=== PATIENT | male | born 1945 | race Caucasian/White ===

== ENCOUNTER 2022-05-13 13:59 | Inpatient (IN) | payer BC ==
[~2022-05-13] VITALS: Ht 172.7 cm; Wt 95.8 kg
[2022-05-13] VITALS (20 sets, daily range): BP systolic 109–135; BP diastolic 47–64
[2022-05-13] MEDS ORDERED: LANTUS SOL100 UNIT/M SC (14:25)
[2022-05-13] MEDS ORDERED: BENICAR HCT1 TA2 PO (14:26)
[2022-05-13] MEDS ORDERED: ROSUVASTATIN CA20 MG PO (14:26)
[2022-05-13] MEDS ORDERED: ELAVIL25 M1 PO (14:26)
[2022-05-13] MEDS ORDERED: GLICLAZIDE PO (14:29)
[2022-05-13] MEDS ORDERED: METFORMIN HCL500 M1 PO (14:29)
[2022-05-13] MEDS ORDERED: ZYLOPRIM300 MG PO (14:30)
[2022-05-13] MEDS ORDERED: TAMSULOSIN0.4 MG PO (14:30)
[2022-05-13] MEDS ORDERED: SPIRONOLACTONE25 MG PO (14:30)
[2022-05-13] MEDS ORDERED: METOPROL TAR25 MG PO (14:31)
[2022-05-13] MEDS ORDERED: OMEPRAZOLE DR20 MG PO (14:31)
[2022-05-13 14:51] LABS: HEMATOCRIT 32.4 % (39.0-50.0); HEMOGLOBIN 10.4 g/dl (14.0-18.0); IMMATURE GRANULOCYTES 0.1 % (0.0-5.0); MEAN CELL VOLUME 84.2 fL CALC (80.0-100.0); MEAN CORPUSCULAR HGB CONC 32.1 g/dL CAL (32.0-36.0); NEUT# 8.4 thou/uL (1.82-7.42); RED BLOOD COUNT 3.85 mill/uL (4.70-6.10)
[2022-05-13 14:55] LABS: URINE BLOOD DIPSTICK LARGE (NEGATIVE); URINE GLUCOSE - DIPSTICK NEGATIVE (NEGATIVE); URINE KETONE NEGATIVE (NEGATIVE); URINE LEUK ESTERASE TRACE (NEGATIVE); URINE PH 6.5 (4.5-8.0); URINE PROTEIN - DIPSTICK 100 mg/dL (NEG-TRACE); URINE UROBILINOGEN - DIPSTICK 0.2 E.U./dL (0.2)
[2022-05-13 14:57] LABS: URINE BILIRUBIN - DIPSTICK SMALL (NEGATIVE); URINE COLOR RED; URINE NITRITE - DIPSTICK POSITIVE (Negative)
[2022-05-13 14:58] LABS: URINE BACTERIA FEW hpf; URINE EPITHELIAL CELLS FEW EPI/hpf (0-FEW); URINE RBC TNTC RBC/hpf (0-5)
[2022-05-13 15:11] LABS: ALBUMIN 3.6 g/dL (3.2-5.0); BILIRUBIN, TOTAL 0.7 mg/dL (0.0-1.4); CREATININE 1.4 mg/dL (0.7-1.3); TOTAL PROTEIN 5.8 g/dL (6.3-8.2)
[2022-05-13 15:12] LABS: POTASSIUM 5.4 mmol/l (3.5-5.1)
[2022-05-14] VITALS (19 sets, daily range): BP systolic 87–126; BP diastolic 23–55
[2022-05-14 06:02] LABS: HEMATOCRIT 31.2 % (39.0-50.0); HEMOGLOBIN 10.1 g/dl (14.0-18.0); IMMATURE GRANULOCYTES 0.3 % (0.0-5.0); MEAN CORPUSCULAR HGB 27.5 pG CALC (26.0-32.0); MEAN CORPUSCULAR HGB CONC 32.4 g/dL CAL (32.0-36.0); NEUT# 5.57 thou/uL (1.82-7.42); RED BLOOD COUNT 3.67 mill/uL (4.70-6.10); RED CELL DISTRI WIDTH 16.2 % (11.5-15.5)
[2022-05-14 06:13] LABS: ALBUMIN 3.1 g/dL (3.2-5.0); BILIRUBIN, TOTAL 0.5 mg/dL (0.0-1.4); CREATININE 1.4 mg/dL (0.7-1.3); POTASSIUM 4.5 mmol/l (3.5-5.1); TOTAL PROTEIN 5.8 g/dL (6.3-8.2)
[2022-05-14] MEDS ORDERED: ASPIRIN/ENTERIC81 MG PO (11:35)
[2022-05-14 17:11] LABS: HEMATOCRIT 35.1 % (39.0-50.0); HEMOGLOBIN 11.2 g/dl (14.0-18.0); IMMATURE GRANULOCYTES 0.6 % (0.0-5.0); MEAN CELL VOLUME 85.4 fL CALC (80.0-100.0); MEAN CORPUSCULAR HGB 27.3 pG CALC (26.0-32.0); MEAN CORPUSCULAR HGB CONC 31.9 g/dL CAL (32.0-36.0); NEUT# 3.96 thou/uL (1.82-7.42); RED BLOOD COUNT 4.11 mill/uL (4.70-6.10); RED CELL DISTRI WIDTH 16.4 % (11.5-15.5)
[2022-05-14 17:36] LABS: ALBUMIN 3.6 g/dL (3.2-5.0); BILIRUBIN, TOTAL 0.3 mg/dL (0.0-1.4); BUN 21 mg/dL (8-23); BUN/CREATININE RATIO 16 (12-20 (CALC)); CHLORIDE 110 mmol/l (95-108); CREATININE 1.3 mg/dL (0.7-1.3); GFR FOR AFR.AMER. > 60 ML/MIN (>=60 (CALC)); GFR OTHER RACES 54 ML/MIN (>=60 (CALC)); POTASSIUM 4.8 mmol/l (3.5-5.1); SGOT/AST 57 u/l (19-48); SODIUM 138 mmol/l (137-146); TOTAL PROTEIN 6.4 g/dL (6.3-8.2)
[2022-05-14 17:37] LABS: ALKALINE PHOSPHATASE 101 u/l (38-126); ANION GAP 18 (6-22 (CALC)); CARBON DIOXIDE 15 mmol/l (22-30)
[2022-05-15] VITALS (38 sets, daily range): BP systolic 41–160; BP diastolic 24–93
[2022-05-15 04:00] LABS: IMMATURE GRANULOCYTES 0.2 % (0.0-5.0); MEAN CELL VOLUME 84.8 fL CALC (80.0-100.0); MEAN CORPUSCULAR HGB 27.2 pG CALC (26.0-32.0); RED BLOOD COUNT 3.35 mill/uL (4.70-6.10); RED CELL DISTRI WIDTH 16.4 % (11.5-15.5)
[2022-05-15 04:03] LABS: HEMATOCRIT 28.4 % (39.0-50.0); HEMOGLOBIN 9.1 g/dl (14.0-18.0)
[2022-05-15 04:20] LABS: ALKALINE PHOSPHATASE 59 u/l (38-126); BILIRUBIN, TOTAL 0.3 mg/dL (0.0-1.4); BUN 23 mg/dL (8-23); BUN/CREATININE RATIO 18 (12-20 (CALC)); CHLORIDE 114 mmol/l (95-108); CREATININE 1.3 mg/dL (0.7-1.3); GFR FOR AFR.AMER. > 60 ML/MIN (>=60 (CALC)); GFR OTHER RACES 54 ML/MIN (>=60 (CALC)); MAGNESIUM 1.3 mg/dL (1.6-2.3); POTASSIUM 5.1 mmol/l (3.5-5.1); SGOT/AST 57 u/l (19-48); SODIUM 140 mmol/l (137-146); TOTAL PROTEIN 5.4 g/dL (6.3-8.2)
[2022-05-15 04:21] LABS: ALBUMIN 2.8 g/dL (3.2-5.0); ANION GAP 11 (6-22 (CALC)); CARBON DIOXIDE 20 mmol/l (22-30)
[2022-05-16] VITALS (12 sets, daily range): BP systolic 111–150; BP diastolic 27–60
[2022-05-16 06:02] LABS: HEMATOCRIT 27.5 % (39.0-50.0); MEAN CELL VOLUME 83.6 fL CALC (80.0-100.0); MEAN CORPUSCULAR HGB 27.4 pG CALC (26.0-32.0); MEAN CORPUSCULAR HGB CONC 32.7 g/dL CAL (32.0-36.0); RED BLOOD COUNT 3.29 mill/uL (4.70-6.10); RED CELL DISTRI WIDTH 16.3 % (11.5-15.5)
[2022-05-16 06:39] LABS: ANION GAP 10 (6-22 (CALC)); BUN 14 mg/dL (8-23); BUN/CREATININE RATIO 14 (12-20 (CALC)); CARBON DIOXIDE 21 mmol/l (22-30); CHLORIDE 111 mmol/l (95-108); GFR FOR AFR.AMER. > 60 ML/MIN (>=60 (CALC)); GFR OTHER RACES > 60 ML/MIN (>=60 (CALC)); MAGNESIUM 1.6 mg/dL (1.6-2.3); POTASSIUM 4.1 mmol/l (3.5-5.1); SODIUM 137 mmol/l (137-146)
[2022-05-16] MEDS ORDERED: LEVOFLOXACIN500MG PO (15:15)
[2022-05-17 13:31] VITALS: BP 112/58
== END 2022-05-16 16:30 | disposition home or self-care (01) | DRG 872 ==
LOC: ED 13:59 → ED-I 14:40 → ED 14:40 → ED-I 16:50 → ED 18:10 → MS2 18:11 → ICU 05-14 18:08
PROVIDERS: Family Medicine; Nurse Practitioner Family; ADMIT Internal Medicine; ATTEND Internal Medicine
PROC: 0T9B70Z Drainage of Bladder with Drainage Device, Via Natural or Artificial Opening (ICD-10-PCS; principal; 2022-05-14)
DX: A41.59 Other Gram-negative sepsis (principal); N12 Tubulo-interstitial nephritis, not specified as acute or chronic; R65.20 Severe sepsis without septic shock; N40.1 Benign prostatic hyperplasia with lower urinary tract symptoms; R33.8 Other retention of urine; D69.59 Other secondary thrombocytopenia; E11.9 Type 2 diabetes mellitus without complications; I10 Essential (primary) hypertension; E78.5 Hyperlipidemia, unspecified; M10.9 Gout, unspecified; Z79.4 Long term (current) use of insulin
CPT/HCPCS: J0692; J3475; S0164